=== PATIENT | female | born 2000 | race Two or more races ===

== ENCOUNTER 2022-03-31 17:46 | Outpatient (CLI) | payer OTHER | END 2022-03-31 18:02 | disposition home or self-care (01) | LOC: NST 17:46 | PROVIDERS: ATTEND Obstetrics & Gynecology Gynecology | DX: Z34.83 Encounter for supervision of other normal pregnancy, third trimester (principal) ==

== ENCOUNTER 2022-04-04 14:30 | Inpatient (IN) | payer OTHER ==
[~2022-04-04] VITALS: Ht 188 cm; Wt 3.6 kg
[2022-04-13] MEDS ORDERED: PRENATAL TABLE1 EAC1 (01:58)
== END 2022-04-15 17:31 | disposition home or self-care (01) | DRG 788 ==
LOC: EDUNIT# 14:30 → EDSTATUS 14:30 → LDR 04-12 20:59 → OB/GYN 04-13 12:09 → LDR 04-13 13:05 → O/R 04-13 18:15 → OB/GYN 04-13 19:27
PROVIDERS: Obstetrics & Gynecology; ADMIT Obstetrics & Gynecology; ATTEND Obstetrics & Gynecology
PROC: 3E0P7VZ Introduction of Hormone into Female Reproductive, Via Natural or Artificial Opening (ICD-10-PCS; 2022-04-12)
PROC: 4A1HXCZ Monitoring of Products of Conception, Cardiac Rate, External Approach (ICD-10-PCS; 2022-04-12)
PROC: 3E033VJ Introduction of Other Hormone into Peripheral Vein, Percutaneous Approach (ICD-10-PCS; 2022-04-13)
PROC: 10D00Z1 Extraction of Products of Conception, Low, Open Approach (ICD-10-PCS; principal; 2022-04-13 13:30)
DX: O61.0 Failed medical induction of labor (principal); O64.0XX0 Obstructed labor due to incomplete rotation of fetal head, not applicable or unspecified; O62.1 Secondary uterine inertia; O99.824 Streptococcus B carrier state complicating childbirth; Z3A.40 40 weeks gestation of pregnancy; Z37.0 Single live birth

== ENCOUNTER 2022-04-12 13:01 | Outpatient (CLI) | payer OTHER ==
[2022-04-13] MEDS ORDERED: PRENATAL TABLE1 EAC1 (01:58)
== END 2022-04-12 13:30 | disposition home or self-care (01) ==
LOC: NST 13:01
PROVIDERS: ATTEND Obstetrics & Gynecology Gynecology
DX: Z34.83 Encounter for supervision of other normal pregnancy, third trimester (principal)